=== PATIENT | female | born 1945 | race Caucasian/White ===

== ENCOUNTER 2018-08-22 10:02 | Emergency (ER) | payer OTHER ==
[~2018-08-22] VITALS: Ht 160 cm; Wt 75.7 kg
[2018-08-22] MEDS ORDERED: CARVEDILOL25 MG PO (10:17)
[2018-08-22] MEDS ORDERED: ZOCOR20 MG PO (10:19)
== END 2018-08-22 12:49 | disposition home or self-care (01) ==
LOC: ER 10:02
DX: N39.0 Urinary tract infection, site not specified (principal)